=== PATIENT | female | born 1980 | race Caucasian/White ===

== ENCOUNTER → 2018-05-03 | Day surgery (SDC) | payer OTHER ==
[~2018-05-03] VITALS: Ht 160 cm; Wt 55.3 kg
--- NOTE | 2018-05-03 10:00 | Operative Report ---
Operative/Inv Procedure Report Surgery Date: 05/03/18 Name of Procedure: Anal fissurectomy with lateral internal sphincterotomy Pre-Operative Diagnosis: Chronic anal fissure Post-Operative Diagnosis: Same Estimated Blood Loss: scant Surgeon/Stator Winder: Mahi DAVIS,Rowdy Soliman Anesthesia: local monitored anesthesi Operative/Procedure Note Note: Patient positioned prone after successful induction of anesthesia the position was adjusted to jackknife, her perirectal area was prepped and draped in usual sterile fashion local anesthetic was injected at the anus posteriorly and left laterally and then an elliptical incision, 2 cm long was made with a 15 blade including the fissure and a small tag distal to it and this was excised checked for hemostasis he is a little bit of cautery and then this opening was closed with a running 3-0 chromic suture and we turned our attention to the left lateral position made a 2 cm radial incision medially just proximal to the anoderm used cautery for hemostasis and dissected the plane between the external and internal sphincter. A portion of the internal anal sphincter was elevated using a pediatric Irene and these transverse fibers were divided with cautery, the area was checked for hemostasis we placed bacitracin liberally over both areas sphincterotomy opening was not closed but we placed some Surgicel there followed by gauze and tape. EBL minimal lap and sponge counts correct wound expectancy clean/contaminated IV fluids crystalloid complications none patient tolerated the procedure well was awakened and returned to recovery room in satisfactory condition.
== END ==
LOC: STS 00:52 → EDSTATUS 07:00
DX: K60.1 Chronic anal fissure (principal); F17.200 Nicotine dependence, unspecified, uncomplicated; J45.909 Unspecified asthma, uncomplicated
CPT/HCPCS: 81025; J2250